=== PATIENT | male | born 1965 | race Caucasian/White ===

== ENCOUNTER → 2018-01-27 | Outpatient (CLI) | payer BC ==
--- NOTE | 2018-01-27 15:36 | CONS ---
CONSULTATION Consultation note for DORETHA. A 52-year-old male patient, does not have a primary and he is going to establish himself with Dr. Valera. He is coming in for sleep apnea evaluation. The patient was diagnosed having DORETHA more than 10 years ago through a Sleep Center in [place], [place]. He was given a CPAP machine which he used for quite some time and subsequently his machine broke and about his brother's machine which is currently set at a pressure of 15 cm of water and has been using his brother's machine for many years. At this point in time, the brother's machine is not functioning appropriately, the modification system is completely nonfunctional. He is also using a Mirage Quattro full-face mask, medium size, that needs to be updated. Despite all this, he is still seeing some benefit from the CPAP therapy. He cannot sleep without it. He used to weight 260 pounds, he lost significant amount of weight at at one point he was down to 190 and currently is up to 219 pounds. He states that he has made an effort to get himself off the CPAP, yet he has failed and as such, there is ongoing symptomatology of sleep apnea which include snoring, witnessed apneas and excessive hypersomnia and sleepiness during the day. He goes to bed around 9 p.m., wakes up at 4 a.m. in the morning. He feels tired and fatigued/especially on days that he does use his CPAP. He takes Xanax on as- needed basis for anxiety. No substance abuse. He is a smoker and drinks beer on 12 pack beer on a weekly basis. No head trauma. No history of CVA, no history of cardiovascular disease. No restlessness in lower extremities or restless legs syndrome. PAST MEDICAL HISTORY: Obstructive sleep apnea and anxiety. PAST SURGICAL HISTORY: Includes laminectomy. DRUG ALLERGIES: Not known. OUTPATIENT MEDICATION: Xanax 0.5 p.r.n. SOCIAL HISTORY: Smoker, 12 pack of beer a week drinker, not a substance abuser or alcoholism or IV drugs. FAMILY HISTORY: Positive for sleep apnea in his brother. REVIEW OF SYSTEMS: A 12-point review of system was done. Positive findings are mentioned above in history of present illness. No nocturia, no insomnia, no choking at nighttime, no sleepwalking, no dry mouth, no panic attacks. There is chronic anxiety. No heartburn, no palpitations, no sweating, no sleep talking, no restlessness in lower extremities, no depression, no problems with memory and concentration. PHYSICAL EXAMINATION: BP is 136/71, pulse 88, respirations 16, temperature 98.5, saturation 96% on room air. Weight is 219, height is 5, 9, BMI is 31.8. Sanford score is at 8. Neck size 18.5 inches. GENERAL APPEARANCE: Calm, comfortable. Head is atraumatic, normocephalic. NECK: Supple. No JVD. No goiter or neck masses. Mallampati class IV. LUNGS: Clear to auscultation. HEART: Sounds regular rate and rhythm. Normal S1, S2. No S3, S4. No murmurs. ABDOMEN: Soft, nontender. No organomegaly. EXTREMITIES: No edema. No cyanosis or clubbing. IMPRESSION: 1. Symptomatic obstructive sleep apnea. The patient currently has borrowed a CPAP machine and being treated at the pressure of 13. He needs to be re-evaluated and his CPAP machine needs to be updated and new equipment needs to be given to this patient including a new CPAP machine, a new mask interface. He prefers a full-face mask. 2. Obesity with a body mass index of 31.8. 3. Chronic anxiety. PLAN: 1. Will need an HSV to confirm the presence of sleep apnea. 2. Based on the results of the HSV the patient will be given a CPAP titration during which his machine will be updated and the patient will be given a different mask interface. 3. Encourage weight loss. 4. Implement good sleep hygiene principles. 5. Will continue to follow. MMODL / IJN: [id number] /
== END | disposition home or self-care (01) ==
LOC: SLEEP 13:14
PROVIDERS: ATTEND Internal Medicine Critical Care Medicine
DX: G47.33 Obstructive sleep apnea (adult) (pediatric) (principal); E66.9 Obesity, unspecified; F41.9 Anxiety disorder, unspecified; F17.200 Nicotine dependence, unspecified, uncomplicated; Z68.31 Body mass index [BMI] 31.0-31.9, adult; Z99.89 Dependence on other enabling machines and devices; Z79.899 Other long term (current) drug therapy; Z98.890 Other specified postprocedural states
CPT/HCPCS: 99211

== ENCOUNTER → 2019-06-28 | Outpatient (CLI) | payer BC ==
--- NOTE | 2019-06-28 16:24 | P.PN ---
Progress Note - Text Progress Note Date: 06/28/19 On today's evaluation of 06/28/2019 on seeing the patient for a follow-up. This is a very pleasant 54-year-old male patient was been on CPAP therapy for many years. He has an older generation Respironics units which is set at a pressure of 13 cm of water. In fact his insurance is not covering the cost of a new machine and he was able to get a CPAP machine which she borrows from his brother which is set at a pressure of 13 cm of water. I checked his compliance data. His numbers look well and the patient is averaging more than 6 hours of CPAP use per night. His apnea popping index is less than 5. Nevertheless, he was having significant amount of leaks around the mask which was affecting his clinical response. His weight is stable and he has lost around 30 pounds since his last evaluation. He is very committed to CPAP therapy. He prefers a full face mask. Otherwise, no heart attacks, no congestion heart failure, no cardiac arrhythmias. No swelling lower extremities. He is able to function well during the day while on CPAP therapy and is very much refreshed and alert. He is still using an older generation Mirage Quatro full face mask. Review of system, a full review of system was done and the positive findings are almost above history of present illness BP 148/79, pulse is 82, respirations 16, temperature 98.1, saturation 95% on room air, weight is 217 and a BMI is 32.6 The patient appeared well nourished and normally developed. Vital signs as documented. Head exam is unremarkable. No scleral icterus or corneal arcus noted. Neck is without jugular venous distension, thyromegaly, or carotid bruits. Carotid upstrokes are brisk bilaterally. Lungs are clear to auscultation and percussion. Cardiac exam reveals the PMI to be normally sized and situated. Rhythm is regular. First and second heart sounds normal. No murmurs, rubs or gallops. Abdominal exam reveals normal bowel sounds, no masses, no organomegaly and no aortic enlargement. Extremities are nonedematous and both femoral and pedal pulses are normal.Examination of the skin revealed no evidence of significant rashes, suspicious appearing nevi or other concerning lesions. Neurologically the patient is awake and alert and there is no focal neurological deficits. Assessment 1 obstructive sleep apnea currently maintained on CPAP at a pressure of 13 cm of water. The patient has severe DORETHA baseline with an AHI of 48.7 2 long-term CPAP use at the pressure of 13 cm 3 hypersomnia improved 4 increased mask leak due to loose membrane around the mask Plan I checked his CPAP machine and the patient is using. I think it's time to update his machine. He wanted to send a prescription for a new CPAP machine. However purchasing one from the market will end up being cheaper. I advised him to do so and he'll bring in the new machine for me to make the appropriate pressure adjustments. If he wants to go through with a DME, I will refer him to heart medical I offered the patient a combination of masks including airfit F20 fullface mask large size and simplus large-size masks. He has enough supplies to last for a total of a year. I will see him back in a year time in follow-up. Encourage weight loss. Abdomen good sleep hygiene measures. His treatment is successful for now.
== END | disposition home or self-care (01) ==
LOC: SLEEP 15:35
PROVIDERS: ATTEND Internal Medicine Critical Care Medicine
DX: G47.33 Obstructive sleep apnea (adult) (pediatric) (principal); Z99.89 Dependence on other enabling machines and devices

== ENCOUNTER → 2023-04-21 | Outpatient (CLI) | payer BC ==
--- NOTE | 2023-04-21 16:57 | P.SLEEP ---
History of Present Illness H&P Date: 04/21/23 This is a 58-year-old male patient with known history of obstructive sleep apnea. The patient's last evaluation here in sleep Center was in June 2019. The patient has severe DORETHA with an AHI of 48.7. He was using a Respironics Nettles CPAP unit which she has purchased and this machine has been set at a pressure of 10 cm of water. The patient recently has obtained medical insurance and he wants to update his CPAP unit as the patient is very compliant and he is very much dependent to CPAP therapy. I checked his machine and his current machine is old. Functional. His been averaging on 6 hours and 34 minutes of CPAP use per night at a pressure of 10 cm of water and his AHI is down to 0.4. He has excessive leaks around the mask and the patient is using a air fit F 20 fullface mask large size. The patient has no major hypersomnia or sleepiness while on treatment. No snoring while on treatment. No significant weight gain or weight loss and his weight has remained stable and the past 3 years and is currently weighing around 215 pounds. No morning headaches. No tiredness or sleepiness during the day. No cardiac mass or complications. No angina. No palpitations. No chest pain. No sleepwalking or sleep talking. No parasomnias. Is going to bed at around 9 AM and his waken up at 3 PM. 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 Review of Systems Constitutional: Denies chills, Denies fever Eyes: denies as per HPI, denies blurred vision, denies bulging eye, denies decreased vision, denies diplopia, denies discharge, denies dry eye, denies irritation, denies itching, denies pain, denies photophobia, denies loss of peripheral vision, denies loss of vision, denies tunnel vision/blind spots Ears: deny: decreased hearing, ear discharge, earache, tinnitus Ears, nose, mouth and throat: Reports as per HPI Breasts: absent: as per HPI, gynecomastia Cardiovascular: Reports as per HPI Respiratory: Reports sleep apnea Gastrointestinal: Reports as per HPI Genitourinary: Reports as per HPI Musculoskeletal: Reports as per HPI Musculoskeletal: absent: ankle pain, ankle stiffness, ankle swelling Integumentary: Reports as per HPI Neurological: Reports as per HPI Psychiatric: Reports as per HPI Endocrine: Reports as per HPI Hematologic/Lymphatic: Reports as per HPI Allergic/Immunologic: Reports as per HPI Past Medical History Past Medical History: Sleep Apnea/CPAP/BIPAP History of Any Multi-Drug Resistant Organisms: None Reported Past Surgical History: No Surgical Hx Reported Past Anesthesia/Blood Transfusion Reactions: No Reported Reaction Smoking Status: Current some day smoker Past Alcohol Use History: None Reported Past Drug Use History: None Reported Medications and Allergies Home Medications and Allergies Comment(s): Xanax on an as-needed basis a dose of 0.5 mg Physical Exam BP is 128/75, pulse is 78, respirations 16, temperature is 97.6, pulse ox is 94% on room air oxygen. Weight is 215. Body mass index of 32.3. The patient appeared well nourished and normally developed. Vital signs as documented. Head exam is unremarkable. No scleral icterus or corneal arcus noted. Neck is without jugular venous distension, thyromegaly, or carotid bruits. Carotid upstrokes are brisk bilaterally. Lungs are clear to auscultation and percussion. Cardiac exam reveals the PMI to be normally sized and situated. Rhythm is regular. First and second heart sounds normal. No murmurs, rubs or gallops. Abdominal exam reveals normal bowel sounds, no masses, no organomegaly and no aortic enlargement. Extremities are nonedematous and both femoral and p edal pulses are normal.Examination of the skin revealed no evidence of significant rashes, suspicious appearing nevi or other concerning lesions.Neurologically, the patient is awake and alert and the patient does not have any focal neurological deficit. Cranial nerves are essentially intact. Assessment and Plan Plan: Severe symptomatic obstructive sleep apnea with an AHI of 48.7. 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 I am unable to recover his original polysomnography. This was done and also sleep Center out of [facility]. Based on that, I'm going to order a home sleep study to confirm the presence of sleep apnea and once the home sleep study results are available, we'll proceed in ordering a new CPAP machine for this patient which was set at a pressure of 10 cm of water. We'll keep the same mask interface for now and the patient will be kept on a Airfit F20 fullface mask. 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 Sleep Note - Sleep Note Sleep Note: Temperature: Pulse Rate: Respiratory Rate: Blood Pressure: SpO2: Height: Weight: BMI: Neck Circumference:
== END ==
LOC: 3 N SLEEP 14:40
PROVIDERS: ATTEND Internal Medicine Critical Care Medicine
DX: G47.33 Obstructive sleep apnea (adult) (pediatric) (principal); G47.10 Hypersomnia, unspecified; F41.9 Anxiety disorder, unspecified; F17.200 Nicotine dependence, unspecified, uncomplicated
CPT/HCPCS: 99211

== ENCOUNTER → 2023-05-19 | Outpatient (CLI) | payer BC | LOC: 3 N SLEEP 16:52 | PROVIDERS: ATTEND Internal Medicine Critical Care Medicine | DX: Z53.9 Procedure and treatment not carried out, unspecified reason (principal) ==

== ENCOUNTER → 2023-05-28 | Outpatient (CLI) | payer BC ==
--- NOTE | 2023-06-03 00:56 | SLS ---
SLEEP STUDY HISTORY OF PRESENT ILLNESS: This patient has chronic severe obstructive sleep apnea and he was utilizing an older generation Respironics Tess unit at a pressure of 10 cm of water. The patient presented to me in the Sleep Center and he was interested in updating his CPAP unit. His original study was done in an outside Sleep Center. A home sleep study was ordered. He has been utilizing an AirFit F20 full-face mask. PERTINENT PHYSICAL FINDINGS: BMI is 32.3, and the patient has a weight of 215. TECHNICAL DESCRIPTION: The [employer] ApneaLink system was used to complete this home sleep study. This is a type 3 home sleep study evaluation. Total recording duration was 12 hours. Study was started at 6:58 p.m. and ended at 6:58 a.m. This was an adequate study as the patient had 7 hours of flow evaluation and 7 hours of oxygen saturation evaluation. RESULTS: Respiratory count showed a total of 30 obstructive apneas and 247 obstructive hypopneas. The resulting AHI was 42.6 consistent with severe obstructive sleep apnea. OXYGENATION ANALYSIS: The patient had an average pulse ox of 93% at night with a minimum pulse ox of 86% and the patient spent approximately 5 minutes of sleep time at a pulse ox of below 89%. CARDIAC SUMMARY: Average heart rate was 69, minimum heart rate was 52, maximum heart rate was 105. IMPRESSION: Severe symptomatic obstructive sleep apnea with an AHI of 42.6. PLAN: Order the patient a newer-generation ResMed 11. This will be a CPAP unit which will be set at a pressure of 10 cm of water and will be kept on an AirFit F20 full-face mask. Encourage weight loss, optimize sleep hygiene measures. See me back in followup for a compliancy check. MMODL / IJN: [id number] /
== END ==
LOC: 3 N SLEEP 13:00
PROVIDERS: ATTEND Internal Medicine Critical Care Medicine
DX: G47.33 Obstructive sleep apnea (adult) (pediatric) (principal)